=== PATIENT | female | born 1960 | race Caucasian/White ===

== ENCOUNTER → 2017-02-07 | Outpatient (REF) ==
[~2017-02-07] MED LIST: CELEXA; CELEXA 20MG20 MG/TAB PO; DIOVAN 160MG160 MG PO; DIOVAN/HCT 12.51 TAB PO; DIOVAN160 MG PO; HCTZ; PREMARIN0.625 MG PO; REQUIP 0.5MG0.5 MG PO
== END ==
LOC: WSOH 17:15
DX: Z02.89 Encounter for other administrative examinations (principal)

== ENCOUNTER → 2017-05-01 | Outpatient (CLI) | payer OTHER ==
[2017-05-01 07:14] LABS: COLLECTION METHOD CLEAN CATCH
[2017-05-01 07:19] LABS: BASO # 0.1 (0.0-0.2); EOS # 0.1 (0.0-0.7); EOS % 2.9 % (0-4.0); GRAN # 2.8 (1.4-6.5); GRAN % 58.2 % (42.2-75.2); HEMATOCRIT 42.6 % (37.0-47.0); HEMOGLOBIN 14.5 g/dl (12.5-16.0); LYMPH # 1.4 (1.2-3.4); LYMPH % 29.7 % (20.0-51.0); MEAN CELL VOLUME 96 fl (80.0-100.0); MEAN CORPUSCULAR HEMOGLOBIN 33 pg (27.0-31.0); MEAN CORPUSCULAR HGB CONC 34 g/dl (33.0-37.0); MEAN PLATELET VOLUME 10.8 fl (7.4-10.4); MONO # 0.4 (0.1-0.6); MONO % 7.8 % (1.7-9.3); PLATELET COUNT 227 K/mm3 (130-400); RED BLOOD COUNT 4.45 M/mm3 (4.10-5.30); WHITE BLOOD COUNT 4.9 K/mm3 (4.8-10.8)
[2017-05-01 07:25] LABS: MUCOUS Present /lpf; PH 6 (5-8); URINE APPEARANCE Clear; URINE BACTERIA Rare /hpf; URINE BILIRUBIN Negative (NEGATIVE); URINE BLOOD 1+ (NEGATIVE); URINE COLOR Yellow; URINE GLUCOSE Negative (NEGATIVE); URINE KETONE Negative (NEGATIVE); URINE LEUKOCYTE ESTERASE Negative (NEGATIVE); URINE PROTEIN(semi-quant) Negative (NEGATIVE); URINE UROBILINOGEN Negative (NEGATIVE)
[2017-05-01 07:33] LABS: ADJUSTED CALCIUM 8.9 mg/dL (8.4-10.2); ALBUMIN 4.9 gm/dL (3.5-5.0); BILIRUBIN,TOTAL 0.8 mg/dL (0.0-1.0); CALCIUM 9.6 mg/dL (8.4-10.2); CHOLESTEROL RISK RATIO 3.5; CREATININE, serum 0.75 mg/dL (0.52-1.25); POTASSIUM 3.6 mmol/L (3.4-5.0); TOTAL PROTEIN 7.8 gm/dL (6.4-8.2)
[2017-05-01 08:03] LABS: THYROID STIMULATING HORMONE 7.73 uIU/mL (0.465-4.680)
== END ==
LOC: COL.LAB 06:50
PROVIDERS: Internal Medicine
DX: Z00.00 Encounter for general adult medical examination without abnormal findings (principal)

== ENCOUNTER → 2017-05-07 | Outpatient (CLI) | payer OTHER | LOC: MC.RAD 07:11 | DX: Z12.31 Encounter for screening mammogram for malignant neoplasm of breast (principal) ==

== ENCOUNTER → 2017-06-17 | Outpatient (CLI) | payer OTHER | LOC: MHCPAIN 14:46 | DX: G89.29 Other chronic pain (principal); M47.27 Other spondylosis with radiculopathy, lumbosacral region; M53.3 Sacrococcygeal disorders, not elsewhere classified; M41.9 Scoliosis, unspecified; M48.061 Spinal stenosis, lumbar region without neurogenic claudication; F17.200 Nicotine dependence, unspecified, uncomplicated | CPT/HCPCS: G0463 ==

== ENCOUNTER → 2017-06-20 | Outpatient (CLI) | payer OTHER | LOC: MHCPAIN 07:40 | DX: M47.817 Spondylosis without myelopathy or radiculopathy, lumbosacral region (principal); M41.9 Scoliosis, unspecified | CPT/HCPCS: J1040; Q9967 ==

== ENCOUNTER → 2017-07-01 | Outpatient (CLI) | payer OTHER | LOC: MHCPAIN 11:42 | DX: G89.29 Other chronic pain (principal); M47.24 Other spondylosis with radiculopathy, thoracic region; M48.061 Spinal stenosis, lumbar region without neurogenic claudication; M41.9 Scoliosis, unspecified | CPT/HCPCS: G0463 ==

== ENCOUNTER → 2017-08-26 | Outpatient (CLI) | payer OTHER | LOC: MHCPAIN 11:44 | DX: G89.29 Other chronic pain (principal); M47.27 Other spondylosis with radiculopathy, lumbosacral region; M48.061 Spinal stenosis, lumbar region without neurogenic claudication; M53.3 Sacrococcygeal disorders, not elsewhere classified; M41.9 Scoliosis, unspecified; F17.200 Nicotine dependence, unspecified, uncomplicated | CPT/HCPCS: G0463 ==

== ENCOUNTER → 2017-10-17 | Outpatient (CLI) | payer OTHER ==
[2017-10-20 11:27] LABS: CK total - for Isoenzymes 152 U/L (26 - 192)
== END ==
LOC: COL.LAB 13:41
PROVIDERS: Internal Medicine
DX: R07.9 Chest pain, unspecified (principal)

== ENCOUNTER → 2017-11-27 | Outpatient (CLI) | payer OTHER | LOC: MHCPAIN 13:11 | DX: G89.29 Other chronic pain (principal); M47.817 Spondylosis without myelopathy or radiculopathy, lumbosacral region; M53.3 Sacrococcygeal disorders, not elsewhere classified; M48.061 Spinal stenosis, lumbar region without neurogenic claudication; M41.9 Scoliosis, unspecified | CPT/HCPCS: G0463 ==

== ENCOUNTER → 2017-12-12 | Outpatient (CLI) | payer OTHER | LOC: MHCPAIN 08:48 | DX: M47.817 Spondylosis without myelopathy or radiculopathy, lumbosacral region (principal); M48.061 Spinal stenosis, lumbar region without neurogenic claudication | CPT/HCPCS: J1040; J2250; J3010; Q9967 ==

== ENCOUNTER → 2018-05-27 | Outpatient (CLI) | payer BC | LOC: MC.RAD 16:20 | DX: Z12.31 Encounter for screening mammogram for malignant neoplasm of breast (principal) ==

== ENCOUNTER → 2019-04-28 | Outpatient (CLI) | payer BC | LOC: MHCPAIN 15:43 | DX: M47.817 Spondylosis without myelopathy or radiculopathy, lumbosacral region (principal); M53.3 Sacrococcygeal disorders, not elsewhere classified | CPT/HCPCS: G0463 ==

== ENCOUNTER → 2020-01-11 | Outpatient (CLI) | payer BC | LOC: MC.RAD 07:00 | DX: Z12.31 Encounter for screening mammogram for malignant neoplasm of breast (principal) ==

== ENCOUNTER → 2020-08-03 | Outpatient (CLI) | payer BC | LOC: MHCPAIN 07:50 | DX: M47.816 Spondylosis without myelopathy or radiculopathy, lumbar region (principal); M41.25 Other idiopathic scoliosis, thoracolumbar region; M54.5 Low back pain; G89.29 Other chronic pain | CPT/HCPCS: G0463 ==

== ENCOUNTER → 2020-08-11 | Outpatient (CLI) | payer BC | LOC: MHCPAIN 12:57 | DX: M47.817 Spondylosis without myelopathy or radiculopathy, lumbosacral region (principal); M54.5 Low back pain; M53.3 Sacrococcygeal disorders, not elsewhere classified ==

== ENCOUNTER → 2020-08-15 | Outpatient (CLI) | payer BC | LOC: MHCPAIN 10:09 | DX: M47.816 Spondylosis without myelopathy or radiculopathy, lumbar region (principal); M54.5 Low back pain; M53.3 Sacrococcygeal disorders, not elsewhere classified; G89.29 Other chronic pain | CPT/HCPCS: G0463 ==

== ENCOUNTER → 2020-09-01 | Outpatient (CLI) | payer BC | LOC: MHCPAIN 13:05 | DX: M47.817 Spondylosis without myelopathy or radiculopathy, lumbosacral region (principal); M54.5 Low back pain; M53.3 Sacrococcygeal disorders, not elsewhere classified ==

== ENCOUNTER → 2020-09-29 | Outpatient (CLI) | payer BC | LOC: MHCPAIN 13:28 | DX: M47.817 Spondylosis without myelopathy or radiculopathy, lumbosacral region (principal); M54.5 Low back pain; M53.3 Sacrococcygeal disorders, not elsewhere classified | CPT/HCPCS: G0463; J1100; J2250; J3010 ==

== ENCOUNTER → 2021-05-09 | Outpatient (CLI) | payer BC | LOC: MC.RAD 11:15 | DX: Z12.31 Encounter for screening mammogram for malignant neoplasm of breast (principal) ==

== ENCOUNTER → 2021-08-08 | Outpatient (CLI) | payer BC | LOC: MHCPAIN 08:12 | DX: M47.896 Other spondylosis, lumbar region (principal); M41.9 Scoliosis, unspecified; M53.3 Sacrococcygeal disorders, not elsewhere classified; G89.29 Other chronic pain | CPT/HCPCS: G0463 ==